=== PATIENT | male | born 1945 | race Caucasian/White ===

== ENCOUNTER 2016-11-24 19:09 | Emergency (ER) | payer OTHER ==
[~2016-11-24] VITALS: Ht 180.3 cm; Wt 87.7 kg
[2016-11-24] MEDS ORDERED: METF500T4 PO (19:34)
[2016-11-24] MEDS ORDERED: LISI-662 PO (19:34)
[2016-11-24 19:37] LABS: GLUCOSE,POINT OF CARE 319 MG/DL (70-110)
[2016-11-24 19:47] VITALS: BP 137/75
== END 2016-11-24 19:56 | disposition home or self-care (01) ==
LOC: EMS 19:10
DX: S91.201A Unspecified open wound of right great toe with damage to nail, initial encounter (principal); E11.65 Type 2 diabetes mellitus with hyperglycemia; E78.00 Pure hypercholesterolemia, unspecified; I10 Essential (primary) hypertension; X58.XXXA Exposure to other specified factors, initial encounter; Y93.89 Activity, other specified; Y92.89 Other specified places as the place of occurrence of the external cause; Y99.8 Other external cause status
CPT/HCPCS: 82962; 99283

== ENCOUNTER 2016-11-28 17:12 | Emergency (ER) | payer OTHER ==
[~2016-11-28] VITALS: Ht 175.3 cm; Wt 80.5 kg
[~2016-11-28 17:12] MED LIST: LISI-662 PO; METF500T4 PO
[2016-11-28] MEDS ORDERED: SODIUM CHLORIDE 0.9% 1,000 ML IV ONE (18:15)
[2016-11-28 18:48] LABS: ANION GAP 5 mmol/L (8-16); CALCIUM, TOTAL 8.4 mg/dL (8.8-10.5); CARBON DIOXIDE 27 mmol/L (22-29); CHLORIDE 104 mmol/L (98-107); CREATININE 0.92 mg/dL (0.60-1.30); GLOMERULAR FILTR. RATE CALC > 60 mL/min (>60); POTASSIUM 4.7 mmol/L (3.5-5.1); SODIUM SERUM 136 mmol/L (136-145); UREA NITROGEN, BLOOD 14 mg/dL (7-18)
[2016-11-28 18:51] LABS: ALANINE AMINOTRANSFERASE 21 U/L (12-78); ALBUMIN 3.2 g/dL (3.4-5.0); ASPARTATE AMINOTRANSFERASE 13 U/L (15-37); BILIRUBIN,TOTAL 0.2 mg/dL (0.1-1.0); TOTAL PROTEIN, SERUM 6.7 g/dL (6.4-8.2)
[2016-11-28 18:52] LABS: EOSINOPHILS % (AUTO) 7.3 % (1.0-6.0); HEMATOCRIT 37.1 % (41-53); HEMOGLOBIN 12.8 g/dL (13.5-17.5); LYMPHOCYTES # (AUTO) 1.3 K/uL (1.0-4.8); LYMPHOCYTES % (AUTO) 26.5 % (22.0-44.0); MEAN CORPUSCULAR HEMOGLOBIN 31.7 pg (26.0-34.0); MEAN CORPUSCULAR HGB CONC 34.4 G/dL (31.0-37.0); MEAN CORPUSCULAR VOLUME 92 fL (80-100); MONOCYTES # (AUTO) 0.5 K/uL (0.1-1.0); MONOCYTES % (AUTO) 10.3 % (2.0-9.0); NEUTROPHILS # (AUTO) 2.8 K/uL (1.8-7.7); NEUTROPHILS % (AUTO) 54.9 % (40.0-70.0); PLATELET COUNT (AUTO) 251 K/uL (150-450); RED BLOOD CELL COUNT(AUTO) 4.02 MIL/uL (4.50-5.90); WHITE BLOOD COUNT (AUTO) 5.1 K/uL (4.5-11.0)
[2016-11-28] MEDS ORDERED: VANCOMYCIN HCL 1 GM/D5% WATER 200 ML IV ONE (19:30)
[2016-11-28] MEDS ORDERED: INSULIN REGULAR, HUMAN 100 UNITS/ML IVP ONE (19:30)
[2016-11-28] MEDS ORDERED: HYDROCODONE/ACETAMINOPHEN 5-325 MG TABLET PO ONE (19:30)
[2016-11-28 19:45] LABS: GLUCOSE,POINT OF CARE 317 MG/DL (70-110)
[2016-11-28 19:49] LABS: GLUCOSE,POINT OF CARE 304 MG/DL (70-110)
[2016-11-28 21:48] VITALS: BP 127/84
[2016-11-29 05:00] LABS: GLUCOSE,POINT OF CARE 183 MG/DL (70-110)
== END 2016-11-28 21:54 | disposition home or self-care (01) ==
LOC: EMS 17:15
DX: L03.031 Cellulitis of right toe (principal); E11.9 Type 2 diabetes mellitus without complications; E78.00 Pure hypercholesterolemia, unspecified; I10 Essential (primary) hypertension
CPT/HCPCS: 36415; 73660; 80053; 82948; 82962; 85025; 87040; 96365; 96375; 99285; J1815; J3370; J7030

== ENCOUNTER 2017-04-08 11:44 | Emergency (ER) | payer OTHER ==
[~2017-04-08] VITALS: Ht 180.3 cm; Wt 88.6 kg
[2017-04-08 12:08] LABS: GLUCOSE,POINT OF CARE 270 MG/DL (70-110)
[2017-04-08] MEDS: KETOROLAC TROMETHAMINE 60 MG/2 ML VIAL IM ONE (13:13)
[2017-04-08 13:45] VITALS: BP 144/77
== END 2017-04-08 13:50 | disposition home or self-care (01) ==
LOC: EMS 11:45
DX: S50.01XA Contusion of right elbow, initial encounter (principal); E11.9 Type 2 diabetes mellitus without complications; I10 Essential (primary) hypertension; E78.00 Pure hypercholesterolemia, unspecified; W22.8XXA Striking against or struck by other objects, initial encounter; Y93.89 Activity, other specified; Y92.89 Other specified places as the place of occurrence of the external cause; Y99.8 Other external cause status
CPT/HCPCS: 82962; 96372; 99283; J1885

== ENCOUNTER 2018-10-04 11:02 | Emergency (ER) | payer MEDICARE, OTHER ==
[~2018-10-04] VITALS: Ht 177.8 cm; Wt 84.1 kg
[~2018-10-04 11:02] MED LIST changes: +METF-960 PO; -METF500T4 PO
[2018-10-04 11:06] VITALS: BP 127/69
[2018-10-04] MEDS ORDERED: AMLO10TA7 PO (11:14)
[2018-10-04] MEDS ORDERED: OMEG-135 PO (11:14)
[2018-10-04] MEDS ORDERED: GABA-529 PO (11:14)
[2018-10-04 11:20] LABS: GLUCOSE,POINT OF CARE 198 MG/DL (70-110)
[2018-10-04 11:52] LABS: APPEARANCE,URINE TURBID (CLEAR); GLUCOSE, URINE (UA) 250 mg/dL (NEGATIVE); KETONES,URINE 40 mg/dL (NEGATIVE); LEUKOCYTE ESTERASE ,URINE LARGE (NEGATIVE); OCCULT BLOOD,URINE LARGE (NEGATIVE); PROTEIN,URINE SEE CONFIRM (NEGATIVE)
[2018-10-04 12:12] LABS: BILIRUBIN,URINE PRELIM. POSITIVE (NEGATIVE)
[2018-10-04 12:18] LABS: BACTERIA,URINE Few /HPF (None Seen); NITRATE,URINE NEGATIVE (NEGATIVE); RBC,URINE Full Field /HPF (0-2); SQUAMOUS EPITHELIAL CELL,UR Few /LPF (None Seen); SULFOSALICYLIC ACID,URINE 3+ (Negative)
[2018-10-04] MEDS ORDERED: CIPROFLOXACIN HCL 250 MG TABLET PO ONE (14:30)
== END 2018-10-04 14:53 | disposition home or self-care (01) ==
LOC: EMS 11:03
DX: N39.0 Urinary tract infection, site not specified (principal); E11.65 Type 2 diabetes mellitus with hyperglycemia; I10 Essential (primary) hypertension; E78.00 Pure hypercholesterolemia, unspecified; Z79.84 Long term (current) use of oral hypoglycemic drugs; Z79.899 Other long term (current) drug therapy
CPT/HCPCS: 87086

== ENCOUNTER 2021-12-21 10:17 | Emergency (ER) | payer MEDICARE, OTHER ==
[~2021-12-21] VITALS: Ht 180.3 cm; Wt 89.1 kg
[~2021-12-21 10:17] MED LIST changes: +AMLO-258 PO; +GABA-1216 PO; -LISI-662 PO; +LISI-894 PO; +METF-1211 PO; -METF-960 PO; +OMEG-135 PO
[2021-12-21 11:56] VITALS: BP 114/76
[2021-12-21] MEDS ORDERED: IBUP-1554 PO (12:25)
[2021-12-21] MEDS ORDERED: PENI500T2 PO (12:25)
[2021-12-21] MEDS ORDERED: HYDR-4723 PO (12:25)
== END 2021-12-21 12:44 | disposition home or self-care (01) ==
LOC: EMS 10:24
DX: J02.9 Acute pharyngitis, unspecified (principal); E11.65 Type 2 diabetes mellitus with hyperglycemia; E78.00 Pure hypercholesterolemia, unspecified; I10 Essential (primary) hypertension
CPT/HCPCS: 82962; 87430; 99283

== ENCOUNTER 2022-07-13 11:50 | Emergency (ER) | payer MEDICARE, OTHER ==
[~2022-07-13] VITALS: Ht 180.3 cm; Wt 94.1 kg
[~2022-07-13 11:50] MED LIST changes: +HYDR-4723 PO; +IBUP-1554 PO; +PENI500T2 PO
[2022-07-13] MEDS ORDERED: CHOL200059 PO (11:56)
[2022-07-13] MEDS ORDERED: INSLAN SQ (11:56)
[2022-07-13] MEDS ORDERED: SITA50 PO (11:56)
[2022-07-13] MEDS ORDERED: ATOR10TA69 PO (11:56)
[2022-07-13] MEDS ORDERED: INSU100V SQ (11:56)
[2022-07-13] MEDS ORDERED: SODIUM CHLORIDE 0.9% 1,000 ML IV ONE (13:15)
[2022-07-13] MEDS ORDERED: MECLIZINE HCL 25 MG TABLET PO ONE (13:15)
[2022-07-13] MEDS ORDERED: LEVO50TA11 PO (13:17)
[2022-07-13] MEDS ORDERED: SEMA2PEN SQ (13:17)
[2022-07-13] MEDS ORDERED: INSU300I SQ (13:17)
[2022-07-13 13:36] LABS: BASOPHILS % (AUTO) 0.7 % (0.0-2.0); EOSINOPHILS % (AUTO) 2.4 % (1.0-6.0); HEMATOCRIT 40.2 % (41-53); HEMOGLOBIN 13.4 g/dL (13.5-17.5); LYMPHOCYTES # (AUTO) 1.8 K/uL (1.0-4.8); LYMPHOCYTES % (AUTO) 24.5 % (22.0-44.0); MEAN CORPUSCULAR HGB CONC 33.2 G/dL (31.0-37.0); MEAN CORPUSCULAR VOLUME 93 fL (80-100); MONOCYTES # (AUTO) 0.7 K/uL (0.1-1.0); MONOCYTES % (AUTO) 9.5 % (2.0-9.0); NEUTROPHILS # (AUTO) 4.7 K/uL (1.8-7.7); NEUTROPHILS % (AUTO) 62.9 % (40.0-70.0); PLATELET COUNT (AUTO) 302 K/uL (150-450); RED BLOOD CELL COUNT(AUTO) 4.32 MIL/uL (4.50-5.90); RED CELL DISTRIBUTION WIDTH 13.7 % (11.5-14.5)
[2022-07-13 13:46] LABS: ANION GAP 9 mmol/L (8-16); CALCIUM, TOTAL 8.5 mg/dL (8.8-10.5); CARBON DIOXIDE 27 mmol/L (22-29); CHLORIDE 100 mmol/L (98-107); GLOMERULAR FILTR. RATE CALC > 60 mL/min (>60); GLUCOSE,RANDOM 201 mg/dL (70-110); POTASSIUM 3.5 mmol/L (3.5-5.1); SODIUM SERUM 136 mmol/L (136-145)
[2022-07-13] MEDS ORDERED: MECL-134 PO (14:44)
[2022-07-13 15:01] VITALS: BP 154/86
== END 2022-07-13 15:34 | disposition home or self-care (01) ==
LOC: EMS 11:59
DX: R42 Dizziness and giddiness (principal); E11.65 Type 2 diabetes mellitus with hyperglycemia; E78.00 Pure hypercholesterolemia, unspecified; I10 Essential (primary) hypertension
CPT/HCPCS: 99285; 96360; 70450; 80048; 82962; 85025; 36415; 93005; J7030

== ENCOUNTER 2024-10-08 10:54 | Emergency (ER) | payer MEDICARE, OTHER ==
[~2024-10-08] VITALS: Ht 182.9 cm; Wt 88.2 kg
[~2024-10-08 10:54] MED LIST changes: +ATOR10TA69 PO; +CHOL200059 PO; -HYDR-4723 PO; -IBUP-1554 PO; +INSU100V SQ; +INSU300I SQ; +LEVO50TA11 PO; +MECL-134 PO; -OMEG-135 PO; -PENI500T2 PO; +SEMA2PEN SQ; +SITA50 PO
[2024-10-08 11:00] VITALS: TEMP 98.4
[2024-10-08] MEDS: ACETAMINOPHEN 500 MG TABLET PO ONE (11:35)
[2024-10-08] MEDS: LIDOCAINE 5% TRANSDERMAL PATCH TD ONE (11:36)
[2024-10-08] MEDS ORDERED: ACET-3385 PO (12:09)
[2024-10-08] MEDS ORDERED: LIDO-57 TP (12:09)
[2024-10-08 12:20] VITALS: BP 115/68; PULSE 76; RESP 16; O2SAT 100
== END 2024-10-08 12:38 | disposition home or self-care (01) ==
LOC: EMS 10:54
DX: S16.1XXA Strain of muscle, fascia and tendon at neck level, initial encounter (principal); E11.9 Type 2 diabetes mellitus without complications; E78.00 Pure hypercholesterolemia, unspecified; I10 Essential (primary) hypertension; Z79.4 Long term (current) use of insulin; Z98.890 Other specified postprocedural states; Z79.85 Long-term (current) use of injectable non-insulin antidiabetic drugs; Z79.899 Other long term (current) drug therapy; V49.9XXA Car occupant (driver) (passenger) injured in unspecified traffic accident, initial encounter; Y93.89 Activity, other specified; Y92.410 Unspecified street and highway as the place of occurrence of the external cause; Y99.8 Other external cause status
CPT/HCPCS: 70450; 72125; 99284

== ENCOUNTER 2024-10-22 04:24 | Emergency (ER) | payer MEDICARE, OTHER ==
[~2024-10-22] VITALS: Ht 180.3 cm; Wt 90.0 kg
[~2024-10-22 04:24] MED LIST changes: +ACET-3385 PO; +LIDO-57 TP
[2024-10-22 04:43] VITALS: TEMP 97.9
[2024-10-22 05:06] LABS: GLUCOMETER DEV NAME(LOC) ER.7; GLUCOSE,POINT OF CARE 207 MG/DL (70-110)
[2024-10-22 05:17] LABS: PLATELET COUNT (AUTO) 333 K/uL (150-450); RED BLOOD CELL COUNT(AUTO) 4.70 MIL/uL (4.50-5.90); RED CELL DISTRIBUTION WIDTH 14.0 % (11.5-14.5); WHITE BLOOD COUNT (AUTO) 3.0 K/uL (4.5-11.0)
[2024-10-22] MEDS ORDERED: IOHEXOL 300 MG/ML 100 ML VIAL ONE (05:21)
[2024-10-22 05:24] LABS: APPEARANCE,URINE CLEAR (CLEAR); GLUCOSE, URINE (UA) >=1000 mg/dL (NEGATIVE); LEUKOCYTE ESTERASE ,URINE SMALL (NEGATIVE); NITRATE,URINE NEGATIVE (NEGATIVE); OCCULT BLOOD,URINE NEGATIVE (NEGATIVE); SPECIFIC GRAVITIY, URINE 1.028 (1.003-1.030)
[2024-10-22 05:26] LABS: SQUAMOUS EPITHELIAL CELL,UR Few /LPF (None Seen)
[2024-10-22 05:31] LABS: CALCIUM, TOTAL 9.1 mg/dL (8.8-10.5); CREATININE 1.37 mg/dL (0.60-1.30); GLOMERULAR FILTR. RATE CALC 50 mL/min (>60); GLUCOSE,RANDOM 215 mg/dL (70-110); SODIUM SERUM 140 mmol/L (136-145); UREA NITROGEN, BLOOD 17 mg/dL (7-18)
[2024-10-22] MEDS: SODIUM CHLORIDE 0.9% 1,000 ML IV ONE (05:34)
[2024-10-22] MEDS: MORPHINE SULFATE 2 MG/ML SYRINGE IVP ONE (05:34)
[2024-10-22 05:35] LABS: TROPONIN I-HIGH SENSITIVITY 4 ng/L (<76)
[2024-10-22] MEDS: ONDANSETRON HCL 4 MG/2 ML VIAL IVP ONE (06:30)
[2024-10-22 07:00] VITALS: BP 122/63; PULSE 112; RESP 17; O2SAT 92
== END 2024-10-22 09:56 | disposition short-term general hospital (02) ==
LOC: EMS 04:30
DX: R10.31 Right lower quadrant pain (principal); E11.65 Type 2 diabetes mellitus with hyperglycemia; E78.00 Pure hypercholesterolemia, unspecified; R51.9 Headache, unspecified; I10 Essential (primary) hypertension; R30.0 Dysuria; Z79.4 Long term (current) use of insulin; Z79.84 Long term (current) use of oral hypoglycemic drugs; Z79.85 Long-term (current) use of injectable non-insulin antidiabetic drugs; Z79.899 Other long term (current) drug therapy
CPT/HCPCS: 99291; 74177; 96374; 96361; 96375; 80048; 81001; 82962; 83690; 84484; 85025; 87040; 87077; 87205; 36415; 93005; J0360; J1171; J2270; J2405; J7030; Q9967

== ENCOUNTER 2024-12-31 13:13 | Emergency (ER) | payer MEDICARE, OTHER ==
[~2024-12-31] VITALS: Ht 175.3 cm; Wt 84.1 kg
[2024-12-31 13:19] VITALS: TEMP 97.7
[2024-12-31 14:37] LABS: PLATELET COUNT (AUTO) 346 K/uL (150-450); RED BLOOD CELL COUNT(AUTO) 4.07 MIL/uL (4.50-5.90); RED CELL DISTRIBUTION WIDTH 14.5 % (11.5-14.5); WHITE BLOOD COUNT (AUTO) 4.8 K/uL (4.5-11.0)
[2024-12-31 14:52] LABS: CALCIUM, TOTAL 8.9 mg/dL (8.8-10.5); CREATININE 0.81 mg/dL (0.60-1.30); GLOMERULAR FILTR. RATE CALC > 60 mL/min (>60); GLUCOSE,RANDOM 92 mg/dL (70-110); SODIUM SERUM 138 mmol/L (136-145); UREA NITROGEN, BLOOD 16 mg/dL (7-18)
[2024-12-31 14:58] LABS: TROPONIN I-HIGH SENSITIVITY 5 ng/L (<76)
[2024-12-31] MEDS ORDERED: TRIA15CR49 TP (15:24)
[2024-12-31] MEDS ORDERED: POTA8TAB71 PO (15:24)
[2024-12-31] MEDS ORDERED: FURO20TA5 PO (15:24)
[2024-12-31 15:39] VITALS: BP 127/68; PULSE 62; RESP 20; O2SAT 98
== END 2024-12-31 15:41 | disposition home or self-care (01) ==
LOC: EMS 13:13
DX: R60.0 Localized edema (principal); E11.9 Type 2 diabetes mellitus without complications; I10 Essential (primary) hypertension; E78.00 Pure hypercholesterolemia, unspecified; L30.9 Dermatitis, unspecified; Z79.85 Long-term (current) use of injectable non-insulin antidiabetic drugs; Z79.4 Long term (current) use of insulin; Z98.890 Other specified postprocedural states; Z79.899 Other long term (current) drug therapy
CPT/HCPCS: 71045; 80048; 82962; 83880; 84484; 85025; 93005; 99285; 36415-L1; 36415-TC